=== PATIENT | female | born 1985 | race Caucasian/White ===

== ENCOUNTER 2018-02-10 08:00 | Outpatient (CLI) | payer OTHER ==
[2018-02-10 08:18] LABS: BASOPHILS % (AUTO) 0.7 %; EOSINOPHILS # (AUTO) 0.1 10^3/uL (0.0-0.7); HGB - HEMOGLOBIN 15.1 g/dL (12.0-16.0); LYMPHOCYTES # (AUTO) 1.7 10^3/uL (1.5-3.5); LYMPHOCYTES % (AUTO) 30.4 %; MEAN CORPUSCULAR HEMOGLOBIN 33.4 pg (27.0-31.0); MEAN CORPUSCULAR HGB CONC 35.3 g/dL (32.0-36.0); MEAN CORPUSCULAR VOLUME 94.4 fL (81.0-99.0); MEAN PLATELET VOLUME 7.9 fL (7.9-10.8); MONOCYTES # (AUTO) 0.3 10^3/uL (0.0-1.0); MONOCYTES % (AUTO) 5.6 %; NEUTROPHILS # (AUTO) 3.4 10^3/uL (1.5-6.6); NEUTROPHILS % (AUTO) 62.3 %; PLT - PLATELET COUNT 286 10^3/uL (130-450); RED BLOOD COUNT 4.52 10^6/uL (4.20-5.40); RED CELL DISTRIBUTION WIDTH 12.4 % (12.0-15.0); WHITE BLOOD COUNT 5.5 x10^3/uL (4.8-10.8)
[2018-02-10 08:42] LABS: ALBUMIN 4.3 g/dL (3.2-5.5); ALBUMIN/GLOBULIN RATIO 1.7 (1.0-2.2); ALKALINE PHOSPHATASE 40 IU/L (42-121); ALT ALANINE AMINOTRANSFERASE < 10 IU/L (10-60); AST ASPARTATE AMINOTRANSFERASE 15 IU/L (10-42); BILIRUBIN,TOTAL 1.6 mg/dL (0.2-1.0); BUN - BLOOD UREA NITROGEN 10 mg/dL (6-20); CALCIUM 8.6 mg/dL (8.5-10.3); CARBON DIOXIDE - CO2 27 mmol/L (21-32); CHLORIDE 103 mmol/L (101-111); CHOL/HDL RATIO 3.5 (<4.4); CHOLESTEROL 159 mg/dL; CREATININE 0.8 mg/dL (0.4-1.0); GFR - MDRD 83 (>89); GLUCOSE 97 mg/dL (70-100); HDL CHOLESTEROL 46 mg/dL; LDL CHOLESTEROL,CALCULATED 102 mg/dL; LDL/HDL RATIO 2.2 (<4.4); SODIUM 137 mmol/L (135-145); TOTAL PROTEIN 6.8 g/dL (6.7-8.2); VLDL CHOLESTEROL 11 mg/dL
[2018-02-10 08:46] LABS: HB2 TOTAL 16.3 g/dL; HEMOGLOBIN A1C 0.47 g/dL; HEMOGLOBIN A1C % 4.8 % (4.6-6.2)
[2018-02-10 10:01] LABS: THYROID STIMULATING HORMONE 2.08 uIU/mL (0.34-5.60)
[2018-02-10 10:03] LABS: FREE T4 (FREE THYROXINE) 0.78 ng/dL (0.58-1.64)
== END 2018-02-10 08:01 | disposition home or self-care (01) ==
LOC: LAB 08:00
PROVIDERS: ATTEND Naturopath
DX: Z00.01 Encounter for general adult medical examination with abnormal findings (principal); R53.83 Other fatigue; Z13.0 Encounter for screening for diseases of the blood and blood-forming organs and certain disorders involving the immune mechanism; Z13.1 Encounter for screening for diabetes mellitus; Z13.220 Encounter for screening for lipoid disorders; Z13.29 Encounter for screening for other suspected endocrine disorder; Z13.228 Encounter for screening for other metabolic disorders
CPT/HCPCS: 36415; 80053; 80061; 83036; 83721; 84439; 84443; 84481; 85025

== ENCOUNTER 2018-02-28 07:24 | Outpatient (CLI) | payer OTHER ==
[2018-02-28 08:01] LABS: BILIRUBIN,DIRECT 0.2 mg/dL (0.1-0.5); BILIRUBIN,INDIRECT 1.8 mg/dL
[2018-02-28 08:18] LABS: FERRITIN 56.8 ng/mL (11.0-306.8)
[2018-02-28 08:22] LABS: FOLATE 15.72 ng/mL (5.90 - >24.8)
== END 2018-02-28 07:25 | disposition home or self-care (01) ==
LOC: LAB 07:24
PROVIDERS: ATTEND Naturopath
DX: E55.9 Vitamin D deficiency, unspecified (principal); R71.8 Other abnormality of red blood cells; R53.83 Other fatigue; R94.5 Abnormal results of liver function studies
CPT/HCPCS: 36415; 82247; 82248; 82306; 82607; 82728; 82746; 83540; 84466

== ENCOUNTER 2019-07-20 21:14 | Outpatient (CLI) | payer OTHER ==
--- NOTE | 2019-07-20 22:12 | Ultrasound Report ---
Reason: LOCALIZED SWELLING, MASS AND LUMP, LEFT LOWER LIMB Procedure Date: 07/20/2019 Accession Number: [id number] / [id number] Procedure: US - Duplex Ext Veins Left CPT Code: Final Report FULL RESULT: EXAM: LEFT LOWER EXTREMITY VENOUS ULTRASOUND EXAM DATE: 07/20/2019 09:56 PM. CLINICAL HISTORY: LOCALIZED SWELLING, MASS AND LUMP, LEFT LOWER LIMB. COMPARISON: None. TECHNIQUE: Real-time sonographic vascular imaging was performed by the ticket counter through the lower extremity utilizing both color-flow and Doppler spectral analysis. Multiple corporate sales representative static images were saved for review. FINDINGS: Common Femoral Vein (CFV): Normal. CFV-GSV Junction: Normal. Profunda Femoral Vein (PFV): Normal. Femoral Vein (FV) Prox: Normal. Femoral Vein (FV) Mid: Normal. Femoral Vein (FV) Dist: Normal. Popliteal Vein: Normal. Posterior Tibial Veins: Normal. Peroneal Veins: Normal. Contralateral Side CFV: Normal. Other: Multiple varicosities are seen in the left groin and thigh. A varicosity in the left groin is thrombosed. No surrounding edema is seen. IMPRESSION: 1. No evidence for deep venous thrombosis. 2. Thrombosed left groin varicose vein. [facility] The call report notification system was initiated by Dr. Sherita Garcia at 10:07 PM on 07/20/2019. The above call report findings were discussed with Dr. Mcgrath by Dr. Sherita Garcia at 10:11 PM on 07/20/2019.
== END 2019-07-20 21:15 | disposition home or self-care (01) ==
LOC: DI 21:14
PROVIDERS: ATTEND Nurse Practitioner Obstetrics & Gynecology
DX: I86.8 Varicose veins of other specified sites (principal); I82.890 Acute embolism and thrombosis of other specified veins

== ENCOUNTER 2020-01-25 14:15 | Outpatient (CLI) | payer OTHER | END 2020-01-25 14:16 | disposition home or self-care (01) | LOC: COV 14:15 | PROVIDERS: ATTEND Family Medicine | DX: R05 Cough (principal); R53.83 Other fatigue; J02.9 Acute pharyngitis, unspecified; R09.81 Nasal congestion; Z20.828 Contact with and (suspected) exposure to other viral communicable diseases ==

== ENCOUNTER 2020-04-15 08:18 | Emergency (ER) | payer OTHER ==
[2020-04-15] MEDS ORDERED: BUFFERED LIDOCAINE 10 ML SYRINGE SUBQ STA (08:27)
[2020-04-15 08:40] VITALS: BP 122/72
--- NOTE | 2020-04-15 09:36 | ED Physician Documentation ---
History of Present Illness - Stated complaint Stated Complaint: LT HAND LAC - Chief complaint Chief Complaint: Laceration - History obtained from History obtained from: Patient - Additonal information Additional information: 34-year-old woman, previously healthy presents with laceration of left dorsum of hand,3 cm in length, caused by a kitchen knife. This happened this morning. No pain at the site at present and patient has good range of motion in her hand with normal neurovascular status. Tetanus up-to-date in the past 2 years. 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 : None HEENT: None Psych: None Musculoskeletal: None Derm: None - Past Surgical History Past Surgical History: No - Present Medications Home Medications: Ambulatory Orders Medication Instructions Recorded Confirmed No Known Home Medications 04/15/20 04/15/20 - Allergies Allergies/Adverse Reactions: Allergies Allergy/AdvReac Type Severity Reaction Status Date / Time No Known Drug Allergies Allergy Verified 04/15/20 08:34 - Social History Does the pt smoke?: No Smoking Status: Never smoker Does the pt drink ETOH?: Yes Does the pt have substance abuse?: No - Immunizations Immunizations are current?: Yes PD ED PE NORMAL - Vitals Vital signs reviewed: Yes - General General: Alert and oriented X 3 - HEENT HEENT: Atraumatic, PERRL, EOMI - Derm Derm: Normal color, Other (3cm laceration to dorsum of hand without tendon involvement) - Extremities Extremities: Normal ROM s pain, Other (sensorineural and vascularly intact) Results - Vitals Vitals: Vital Signs - 24 hr 04/15/20 08:34 Temperature 36.7 C Heart Rate 70 Respiratory 16 Rate Blood Pressure 122/72 O2 Saturation 99 Oxygen O2 Source Room air Procedures - Laceration (location) Hand left Dorsal Wound type: Linear Neurovascular status: Sensory intact, Motor intact, Vascular intact Tendon involvement: Tendon intact Anesthesia: Lidocaine 1%, With bicarb Wound Preparation: Irrigated copiously NS Deep layer closure: size #-0 - enter number (4-0) Skin layer closure: Nylon, Sutures - enter # (3) Other: Patient tolerated well, No complications, Neurovascular intact, Tetanus U TD Complexity: Simple PD MEDICAL DECISION MAKING - ED course ED course: 34-year-old woman came in with a simple laceration toLeft hand that I repaired. Return precautions given. Departure - Departure Disposition: 01 Home, Self Care Clinical Impression: Laceration Condition: Good Record reviewed to determine appropriate education?: Yes Instructions: ED Laceration Hand Comments: Follow-up in 10 to 14 days for suture removal either here or urgent care. You can call your primary doctor to see if they do it as well.
== END 2020-04-15 09:42 | disposition home or self-care (01) ==
LOC: ED 08:18
DX: S61.412A Laceration without foreign body of left hand, initial encounter (principal); W26.0XXA Contact with knife, initial encounter; Y93.G1 Activity, food preparation and clean up; Y92.219 Unspecified school as the place of occurrence of the external cause; Y99.0 Civilian activity done for income or pay
CPT/HCPCS: 1040M; 12002; 99282

== ENCOUNTER 2021-08-08 06:29 | Outpatient (CLI) | payer OTHER ==
[2021-08-08 06:49] LABS: BASOPHILS % (AUTO) 0.8 %; EOSINOPHILS # (AUTO) 0.1 10^3/uL (0.0-0.7); EOSINOPHILS % (AUTO) 1.4 %; HCT - HEMATOCRIT 42.1 % (37.0-47.0); HGB - HEMOGLOBIN 14.6 g/dL (12.0-16.0); LYMPHOCYTES # (AUTO) 1.4 10^3/uL (1.5-3.5); LYMPHOCYTES % (AUTO) 27.4 %; MEAN CORPUSCULAR HEMOGLOBIN 33.1 pg (27.0-31.0); MEAN CORPUSCULAR HGB CONC 34.7 g/dL (32.0-36.0); MEAN CORPUSCULAR VOLUME 95.5 fL (81.0-99.0); MEAN PLATELET VOLUME 9.5 fL (7.9-10.8); MONOCYTES # (AUTO) 0.3 10^3/uL (0.0-1.0); MONOCYTES % (AUTO) 6.2 %; NEUTROPHILS # (AUTO) 3.3 10^3/uL (1.5-6.6); PLT - PLATELET COUNT 256 10^3/uL (130-450); RED BLOOD COUNT 4.41 10^6/uL (4.20-5.40); RED CELL DISTRIBUTION WIDTH 11.6 % (12.0-15.0); WHITE BLOOD COUNT 5.1 x10^3/uL (4.8-10.8)
[2021-08-08 07:01] LABS: ALBUMIN 4.4 g/dL (3.2-5.5); ALBUMIN/GLOBULIN RATIO 1.9 (1.0-2.2); ALKALINE PHOSPHATASE 46 IU/L (42-121); ALT ALANINE AMINOTRANSFERASE < 10 IU/L (10-60); AST ASPARTATE AMINOTRANSFERASE 14 IU/L (10-42); BILIRUBIN,TOTAL 1.7 mg/dL (0.2-1.0); BUN - BLOOD UREA NITROGEN 14 mg/dL (6-20); CALCIUM 8.8 mg/dL (8.5-10.3); CARBON DIOXIDE - CO2 25 mmol/L (21-32); CHLORIDE 102 mmol/L (101-111); CHOL/HDL RATIO 2.9 (<4.4); CHOLESTEROL 165 mg/dL; CREATININE 0.8 mg/dL (0.4-1.0); GFR - MDRD 81 (>89); GLUCOSE 114 mg/dL (70-100); HDL CHOLESTEROL 57 mg/dL; POTASSIUM 3.9 mmol/L (3.5-5.0); SODIUM 135 mmol/L (135-145); TOTAL PROTEIN 6.7 g/dL (6.7-8.2); TRIGLYCERIDES 33 mg/dL
[2021-08-08 07:12] LABS: THYROID STIMULATING HORMONE 2.37 uIU/mL (0.34-5.60)
== END 2021-08-08 06:30 | disposition home or self-care (01) ==
LOC: LAB 06:29
PROVIDERS: ATTEND Nurse Practitioner Family
DX: Z00.00 Encounter for general adult medical examination without abnormal findings (principal); R53.83 Other fatigue; E55.9 Vitamin D deficiency, unspecified
CPT/HCPCS: 36415; 80053; 80061; 82306; 83721; 84443; 85025